=== PATIENT | male | born 1990 | race Two or more races ===

== ENCOUNTER 2018-11-30 16:51 | Emergency (ER) | payer SELFPAY ==
[~2018-11-30] VITALS: Ht 167.6 cm; Wt 85.3 kg
[2018-11-30 16:58] VITALS: BP 130/75
--- NOTE | 2018-11-30 17:06 | NUR ---
AT BEDSIDE FOR EVAL.
--- NOTE | 2018-11-30 18:30 | NUR ---
Patient discharged to home in stable condition. Written and verbal after care instructions given. Patient verbalizes understanding of instruction.
== END 2018-11-30 18:33 | disposition home or self-care (01) ==
LOC: ER 16:57 → EDBD 16:57 → ER 18:33
DX: R06.02 Shortness of breath (principal); Z59.0 Homelessness

== ENCOUNTER 2019-11-07 21:15 | Emergency (ER) | payer OTHER ==
[~2019-11-07] VITALS: Ht 180.3 cm; Wt 72.6 kg
--- NOTE | 2019-11-07 21:39 | NUR ---
PT [employer] AND [employer] FOR OKAY TO BOOK. PT C/O ANXIOUS AND HYPERVENTILATING. PT SAT 100% ON ROOM AIR. NO ACUTE DISTRESS NOTED. SKIN WARM AND INTACT.
--- NOTE | 2019-11-07 22:23 | NUR ---
Patient discharged to home in stable condition. Written and verbal after care instructions given. Patient verbalizes understanding of instruction. Pt in custody.
[2019-11-07 22:24] VITALS: BP 132/75
== END 2019-11-07 22:24 ==
LOC: ER 21:17
DX: F41.9 Anxiety disorder, unspecified (principal); Z02.89 Encounter for other administrative examinations; Z59.0 Homelessness

== ENCOUNTER 2020-07-28 09:42 | Emergency (ER) | payer OTHER ==
[~2020-07-28] VITALS: Ht 170.2 cm; Wt 83.5 kg
[2020-07-28 09:45] VITALS: BP 128/76
[2020-07-28] MEDS ORDERED: KETOROLAC TROMETHAMINE INJ 30 MG/ML VIAL IM ONE (10:00)
[2020-07-28] MEDS ORDERED: KETOROLAC TROMETHAMINE INJ 30 MG/ML VIAL ONE (10:01)
== END 2020-07-28 10:23 ==
LOC: ER 09:46
DX: M53.3 Sacrococcygeal disorders, not elsewhere classified (principal); Z59.0 Homelessness
CPT/HCPCS: 96372; 99283; J1885